=== PATIENT | female | born 1955 | race Caucasian/White ===

== ENCOUNTER → 2018-08-15 | Outpatient (CLI) | payer BC ==
--- NOTE | 2018-08-15 11:24 | BD ---
EXAMINATION TYPE: Axial Bone Density DATE OF EXAM: 08/15/2018 COMPARISON: NONE CLINICAL HISTORY: Height: 62 Weight: 188.6 FRAX RISK QUESTIONS: Alcohol (3 or more units per day): no Family History (Parent hip fracture): no Glucocorticoids (More than 3mos): no (Ex: prednisone, prednisolone, methylprednisolone, dexamethasone, and hydrocortisone). History of Fracture in Adulthood: no Secondary Osteoporosis: 1. Type 1 Diabetes: no 2. Hyperthyroidism: no 3. Menopause before 45: yes 4. Malnutrition: no 5. Chronic liver disease: no Rheumatoid Arthritis: no Current Tobacco Use: no RISK FACTORS HISTORY OF: Family History of Osteoporosis: no Active: yes Diet low in dairy products/other sources of calcium: no Postmenopausal woman: Lost more than 2 inches in height since high school: no MEDICATIONS: breast cancer med Thyroid Medications: tirosint How Long: since age 17 Additional History: EXAM MEASUREMENTS: Bone mineral densitometry was performed using the Transmension System. Bone mineral density as measured about the Lumbar spine is: ----- L1-L4(G/cm2): 1.126 T Score Values are as follows: ----- L2: -1.8 ----- L3: -0.6 ----- L4: 0.6 ----- L1-L4: -0.4 Bone mineral density : baseline Bone mineral density about the R hip (g/cm2): 0.848 Bone mineral density about the L hip (g/cm2): 0.858 T Score values are as follows: -----R Neck: -1.4 -----L Neck: -1.3 -----R Total: -0.9 -----L Total: -0.9 Bone mineral density : baseline IMPRESSION: No evidence for osteoporosis or osteopenia. NOTE: T-SCORE=SD OF THE YOUNG ADULT MEAN.
== END | disposition home or self-care (01) ==
LOC: RADBDWWP 09:12
PROVIDERS: ATTEND Internal Medicine Hematology & Oncology
DX: C50.412 Malignant neoplasm of upper-outer quadrant of left female breast (principal); Z88.0 Allergy status to penicillin; Z88.1 Allergy status to other antibiotic agents; Z88.5 Allergy status to narcotic agent; Z88.8 Allergy status to other drugs, medicaments and biological substances
CPT/HCPCS: 77080

== ENCOUNTER → 2018-12-18 | Outpatient (CLI) | payer BC ==
--- NOTE | 2018-12-18 15:56 | NM ---
EXAMINATION TYPE: NM bone scan whole body DATE OF EXAM: 12/18/2018 COMPARISON: NONE HISTORY: Breast cancer, joint pain Delayed whole-body scanning was performed following the injection of 23 mCi Tc 99m MDP. Images acqui red 3.5 hours post injection. FINDINGS: Soft tissue uptake is normal. There is uptake in the region of the ethmoid air cells. Uptake within t he maxilla and mandible may be due to periodontal disease. Uptake within the feet, wrists, shoulders, knees, hips and sternoclavicular joints is likely due to underlying arthropathy. Mild uptake in the thoracic and lumbar spine likely due to degenerative disc disease or facet arthropathy. IMPRESSION: Metastatic disease is not evident. Probable sinus disease, periodontal disease as described. Degenera tive disc disease and osteoarthritis suspected.
== END | disposition home or self-care (01) ==
LOC: RADNMMAIN 09:52
PROVIDERS: ATTEND Internal Medicine Hematology & Oncology
DX: Z03.89 Encounter for observation for other suspected diseases and conditions ruled out (principal); C50.419 Malignant neoplasm of upper-outer quadrant of unspecified female breast; M25.50 Pain in unspecified joint
CPT/HCPCS: 78306; A9503

== ENCOUNTER → 2019-04-30 | Outpatient (CLI) | payer BC ==
--- NOTE | 2019-04-30 18:44 | ECHOF ---
Referral Reason:M34.9 systemic scierosis, unspecified MEASUREMENTS -------- HEIGHT: 157.5 cm WEIGHT: 88.5 kg BP: 139/68 RVIDd: 2.7 cm (< 3.3) IVSd: 1.2 cm (0.6 - 1.1) LVIDd: 4.4 cm (3.9 - 5.3) LVPWd: 1.2 cm (0.6 - 1.1) IVSs: 1.7 cm LVIDs: 2.4 cm LVPWs: 1.6 cm LA Diam: 3.6 cm (2.7 - 3.8) LAESV Index (A-L): 22.65 ml/m Ao Diam: 2.7 cm (2.0 - 3.7) AV Cusp: 2.0 cm (1.5 - 2.6) MV EXCURSION: 12.148 mm (> 18.000) MV EF SLOPE: 64 mm/s (70 - 150) EPSS: 0.7 cm MV E Brian: 1.08 m/s MV DecT: 211 ms MV A Brian: 0.88 m/s MV E/A Ratio: 1.22 FINDINGS -------- Sinus rhythm. This was a technically adequate study. The left ventricular size is normal. There is borderline concentric left ventricular hypertrophy. Overall left ventricular systolic function is normal with, an EF between 60 - 65 %. The right ventricle is normal in size. Normal LA size by volume 22+/-6 ml/m2. The right atrium is normal in size. Interatrial and interventricular septum intact. The aortic valve is trileaflet and appears structurally normal. Mild mitral annular calcification present. The tricuspid valve appears structurally normal. Trace/mild (physiologic) pulmonic regurgitation. The aortic root size is normal. There is no pericardial effusion. CONCLUSIONS -------- 1. Sinus rhythm. 2. This was a technically adequate study. 3. The left ventricular size is normal. 4. There is borderline concentric left ventricular hypertrophy. 5. Overall left ventricular systolic function is normal with, an EF between 60 - 65 %. 6. The right ventricle is normal in size. 7. Normal LA size by volume 22+/-6 ml/m2. 8. The right atrium is normal in size. 9. Interatrial and interventricular septum intact. 10. The aortic valve is trileaflet and appears structurally normal. 11. Mild mitral annular calcification present. 12. The tricuspid valve appears structurally normal. 13. Trace/mild (physiologic) pulmonic regurgitation. 14. The aortic root size is normal. 15. There is no pericardial effusion. NEEDLE SETTER: Gloria Boo RDCS
== END | disposition home or self-care (01) ==
LOC: CPPFTMAIN 10:30
PROVIDERS: ATTEND Internal Medicine Rheumatology
DX: R94.2 Abnormal results of pulmonary function studies (principal); I37.1 Nonrheumatic pulmonary valve insufficiency
CPT/HCPCS: 93306; 94060; 94726; 94729

== ENCOUNTER → 2019-05-20 | Outpatient (CLI) | payer BC | END | disposition home or self-care (01) | LOC: LABWHC1 11:50 | PROVIDERS: ATTEND Internal Medicine Endocrinology, Diabetes & Metabolism | DX: E03.8 Other specified hypothyroidism (principal) | CPT/HCPCS: 36415; 84443 ==

== ENCOUNTER → 2019-06-22 | Outpatient (CLI) | payer BC ==
--- NOTE | 2019-06-24 21:46 | CT ---
EXAMINATION TYPE: CT chest w con DATE OF EXAM: 06/22/2019 COMPARISON: None HISTORY: 64-year-old female Interstitial lung disease TECHNIQUE: Contiguous axial scanning of the chest after the administration of 100 ml mL of Isovue 300 . Coronal/sagittal reconstructions performed. CT DLP: 677mGycm. Automatic exposure control utilized for a dose reduction. FINDINGS: Heart normal size without pericardial effusion. Aorta normal caliber with conventional arch vessel branching anatomy. Surgical clips posterior lateral left breast from prior lumpectomy. Skin thickening along the left br east suggests prior radiation therapy change. This can be correlated clinically. No thoracic lymphadenopathy. No consolidation or pleural effusion. No honeycombing, dominant groundglass, thickening of the bronch ovascular bundles, bronchiectasis, or tree-in-bud opacities. 3 mm peripheral right upper lobe pulmonary nodule, axial image 15 could be reassessed in 12 months. Visualized upper abdomen shows a fat density 1.1 cm lesion lateral left kidney compatible with an AML . Cholecystectomy clips. Bones: Mild degenerative disc disease midthoracic spine. IMPRESSION: 1. No specific CT findings of interstitial lung disease. 2. Postsurgical and posttreatment changes of the left breast. 3. A 3 mm right upper lobe pulmonary nodule can be reassessed in 12 months. 4. 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
== END | disposition home or self-care (01) ==
LOC: RADCTMAIN 14:39
PROVIDERS: ATTEND Internal Medicine Rheumatology
DX: R91.1 Solitary pulmonary nodule (principal)
CPT/HCPCS: 71260; Q9967

== ENCOUNTER 2020-01-03 10:10 | Observation (INO) | payer BC ==
[2020-01-03] MEDS ORDERED: SODIUM CHLORIDE 0.9% 1,000 ML IV STA (10:25)
[2020-01-03] MEDS ORDERED: ACETAMINOPHEN TAB 500 MG TAB PO STA (10:25)
[2020-01-03 10:50] LABS: Basophils # (A) 0.1 k/uL (0-0.2); Basophils % (A) 0 %; Eosinophils # (A) 0.2 k/uL (0-0.7); Eosinophils % (A) 2 %; HCT 40.2 % (34.0-46.0); HGB 14.3 gm/dL (11.4-16.0); Lymphocytes # (A) 0.6 k/uL (1.0-4.8); Lymphocytes % (A) 6 %; MCH 32.3 pg (25.0-35.0); MCHC 35.5 g/dL (31.0-37.0); MCV 90.9 fL (80.0-100.0); Mean Platelet Volume 7.3; Monocytes # (A) 0.5 k/uL (0-1.0); Monocytes % (A) 5 %; Neutrophils # (A) 9.6 k/uL (1.3-7.7); Neutrophils % (A) 86 %; Platelet Count 182 k/uL (150-450); RBC 4.42 m/uL (3.80-5.40); RDW 12.9 % (11.5-15.5); WBC 11.2 k/uL (3.8-10.6)
--- NOTE | 2020-01-03 10:52 | XR ---
EXAMINATION TYPE: XR chest 2V DATE OF EXAM: 01/03/2020 COMPARISON: CT chest dated 06/22/2019 HISTORY: Fever TECHNIQUE: Frontal and lateral views of the chest are obtained. FINDINGS: There is no focal air space opacity, pleural effusion, or pneumothorax seen. The 3 mm rig ht upper lobe pulmonary nodule seen on the prior chest CT of 06/22/2019 is not visualized on x-ray. Th e cardiac silhouette size is within normal limits. The osseous structures are intact. Mild multilev el degenerative change of the spine. IMPRESSION: No acute cardiopulmonary process.
[2020-01-03 10:56] LABS: INR 0.9 (<1.2); Partial Thromboplastin Time 24.9 sec (22.0-30.0); Prothrombin Time 9.5 sec (9.0-12.0)
[2020-01-03 10:57] LABS: Albumin 4.4 g/dL (3.5-5.0); Calcium 9.4 mg/dL (8.4-10.2); Magnesium 1.7 mg/dL (1.6-2.3); Total Bilirubin 0.5 mg/dL (0.2-1.3); Total Protein 7.2 g/dL (6.3-8.2)
[2020-01-03] MEDS ORDERED: VANCOMYCIN IV PER PHARMACY 1 EACH MISC MISCELLANE PRN (10:59)
[2020-01-03] MEDS ORDERED: LEVOFLOXACIN 750MG-D5W PMX 750 MG in DEXTROSE/WATER 1 150ML.BAG IVPB STA (10:59)
--- NOTE | 2020-01-03 11:02 | ED ---
General Adult HPI - General Chief complaint: Fever Stated complaint: Fever, Blood Transfusion Time Seen by Provider: 01/03/20 10:23 Source: patient Mode of arrival: wheelchair Limitations: no limitations - History of Present Illness Initial comments: Dictation was produced using [employer] dictation software. please excuse any grammatical, word or spelling errors. This patient was cared for during a federal and state declared state of emergency secondary to Covid 19 Chief Complaint: 64-year-old female she presents today for fever. History of Present Illness: 64-year-old female she has past medical history of breast cancer. Patient was recently on breast cancer medications. Her last breast cancer medication was approximately 2 weeks ago. Last couple days patient has been having intermittent episodes of fever and chills. She called her oncologist today is told to come immediately to the emergency department. Patient states she does not have any symptoms of cough, shortness of breath or diarrhea. She denies any nausea. She is complaining of some mild intermittent abdominal pain. She denies any abdominal pain currently. Patient denies any overt sick exposure. No recent travel. Denies any rash. Denies any sore thr oat or runny nose. The ROS documented in this emergency department record has been reviewed and co nfirmed by me. Those systems with pertinent positive or negative responses have been documented in the HPI. All other systems are other negative and/or noncontributory. PHYSICAL EXAM: General Impression: Alert and oriented x3, not in acute distress HEENT: Normocephalic atraumatic, extra-ocular movements intact, pupils equal and reactive to light bilaterally, mucous membranes moist. Cardiovascular: Heart regular rate and rhythm, S1&S2 audible, no murmurs, rubs or gallops Chest: No signs of respiratory distress, able to complete full sentences Abdomen: Bowel sounds present, abdomen soft, non-tender, non-distended, no organomegaly Musculoskeletal: Pulses present and equal in all extremities, no peripheral edema Motor: no focal deficits noted Neurological: CN II-XII grossly intact, no focal motor or sensory deficits noted Skin: Intact with no visualized rashes Psych: Normal affect and mood ED course: 64-year-old female with chief complaint of fever and chills. Vital signs upon arrival shows temperature 102.5, heart rate of 113, worse vital signs within acceptable limits. She does not have no specific localizing symptoms. She is however considered high risk considering her breast cancer history. Laboratory evaluation obtained. Mild leukocytosis of 11.2. There is no old labs for comparison. Coag panel unremarkable. Metabolic panel shows lactic acidosis at 2.3. Rest metabolic panel is unremarkable. Urinalysis is negative. Flu test negative. Chest x-ray is negative. Patient covered with broad- spectrum advised. Clinical presentation consistent with systemic inflammatory response syndrome. Considering patient's comorbidities we'll have patient admitted with consultation to oncology and infectious disease. Discussed patient case with Dr. Lieberman who is willing to accept patient's care. EKG interpretation: Ventricular rate 97, normal sinus rhythm, RI interval 156, QRS 80, QTC 424. No RI prolongation, no QTC prolongation, no ST or T-wave changes noted. . Overall, this EKG is unremarkable - Related Data Home Medications Medication Instructions Recorded Confirmed Aspirin EC [Ecotrin Low Dose] 81 mg PO HS 01/03/20 01/03/20 Biotin 5,000 mcg PO HS 01/03/20 01/03/20 Calcium Carbonate/Vitamin D3 1 tab PO HS 01/03/20 01/03/20 [Caltrate 600 Plus D3 Tablet] Cholecalciferol [Vitamin D3 (25 1,000 unit PO HS 01/03/20 01/03/20 Mcg = 1000 Iu)] Ibuprofen [Motrin] 600 mg PO Q8HR PRN 01/03/20 01/03/20 Levothyroxine Sodium [Tirosint] 125 mcg PO DAILY 01/03/20 01/03/20 Allergies Allergy/AdvReac Type Severity Reaction Status Date / Time cephalexin [From Keflex] Allergy Nausea & Verified 01/03/20 11:22 Vomiting codeine Allergy Nausea & Verified 01/03/20 11:22 Vomiting meperidine [From Demerol] Allergy Nausea & Verified 01/03/20 11:22 Vomiting Penicillins Allergy Rash/Hives Verified 01/03/20 11:22 tetracycline Allergy Nausea & Verified 01/03/20 11:22 Vomiting Review of Systems ROS Statement: Those systems with pertinent positive or pertinent negative responses have been documented in the HPI. ROS Other: All systems not noted in ROS Statement are negative. Past Medical History Past Medical History: Thyroid Disorder Additional Past Medical History / Comment(s): breast CA, leukocytopenia History of Any Multi-Drug Resistant Organisms: None Reported Past Surgical History: Cholecystectomy, Hysterectomy Additional Past Surgical History / Comment(s): breast surgery, thyroidectomy Past Psychological History: No Psychological Hx Reported Smoking Status: Never smoker Past Alcohol Use History: None Reported Past Drug Use History: None Reported General Exam Limitations: no limitations Course Vital Signs 01/03/20 01/03/20 10:14 10:34 Temperature 102.5 F H Pulse Rate 103 H 113 H Respiratory 18 16 Rate Blood Pressure 144/79 147/84 O2 Sat by Pulse 96 95 Oximetry Procedures - [place] Protocol (Time Out) Nurse: Margaret Yu Medical Decision Making - Lab Data Result diagrams: 01/03/20 10:29 01/03/20 10:29 Lab Results 01/03/20 01/03/20 01/03/20 Range/Units 10:29 10:29 10:29 WBC 11.2 H (3.8-10.6) k/uL RBC 4.42 (3.80-5.40) m/uL Hgb 14.3 (11.4-16.0) gm/dL Hct 40.2 (34.0-46.0) % MCV 90.9 (80.0-100.0) fL MCH 32.3 (25.0-35.0) pg MCHC 35.5 (31.0-37.0) g/dL RDW 12.9 (11.5-15.5) % Plt Count 182 (150-450) k/uL Neutrophils % 86 % Lymphocytes % 6 % Monocytes % 5 % Eosinophils % 2 % Basophils % 0 % Neutrophils # 9.6 H (1.3-7.7) k/uL Lymphocytes # 0.6 L (1.0-4.8) k/uL Monocytes # 0.5 (0-1.0) k/uL Eosinophils # 0.2 (0-0.7) k/uL Basophils # 0.1 (0-0.2) k/uL PT 9.5 (9.0-12.0) sec INR 0.9 (<1.2) APTT 24.9 (22.0-30.0) sec Sodium 136 L (137-145) mmol/L Potassium 4.0 (3.5-5.1) mmol/L Chloride 100 (98-107) mmol/L Carbon Dioxide 26 (22-30) mmol/L Anion Gap 10 mmol/L BUN 19 H (7-17) mg/dL Creatinine 0.96 (0.52-1.04) mg/dL Est GFR (CKD-EPI)AfAm 73 (>60 ml/min/1.73 sqM) Est GFR (CKD-EPI)NonAf 63 (>60 ml/min/1.73 sqM) Glucose 157 H (74-99) mg/dL Plasma Lactic Acid Neil (0.7-2.0) mmol/L Calcium 9.4 (8.4-10.2) mg/dL Magnesium 1.7 (1.6-2.3) mg/dL Total Bilirubin 0.5 (0.2-1.3) mg/dL AST 24 (14-36) U/L ALT 25 (4-34) U/L Alkaline Phosphatase 74 (38-126) U/L Troponin I (0.000-0.034) ng/mL Total Protein 7.2 (6.3-8.2) g/dL Albumin 4.4 (3.5-5.0) g/dL Urine Color Urine Appearance (Clear) Urine pH (5.0-8.0) Ur Specific [place] (1.001-1.035) Urine Protein (Negative) Urine Glucose (UA) (Negative) Urine Ketones (Negative) Urine Blood (Negative) Urine Nitrite (Negative) Urine Bilirubin (Negative) Urine Urobilinogen (<2.0) mg/dL Ur Leukocyte Esterase (Negative) Urine RBC (0-5) /hpf Urine WBC (0-5) /hpf Ur Squamous Epith Cells (0-4) /hpf Influenza Type A RNA (Not Detectd) Influenza Type B (PCR) (Not Detectd) 01/03/20 01/03/20 01/03/20 Range/Units 10:29 10:29 10:33 WBC (3.8-10.6) k/uL RBC (3.80-5.40) m/uL Hgb (11.4-16.0) gm/dL Hct (34.0-46.0) % MCV (80.0-100.0) fL MCH (25.0-35.0) pg MCHC (31.0-37.0) g/dL RDW (11.5-15.5) % Plt Count (150-450) k/uL Neutrophils % % Lymphocytes % % Monocytes % % Eosinophils % % Basophils % % Neutrophils # (1.3-7.7) k/uL Lymphocytes # (1.0-4.8) k/uL Monocytes # (0-1.0) k/uL Eosinophils # (0-0.7) k/uL Basophils # (0-0.2) k/uL PT (9.0-12.0) sec INR (<1.2) APTT (22.0-30.0) sec Sodium (137-145) mmol/L Potassium (3.5-5.1) mmol/L Chloride (98-107) mmol/L Carbon Dioxide (22-30) mmol/L Anion Gap mmol/L BUN (7-17) mg/dL Creatinine (0.52-1.04) mg/dL Est GFR (CKD-EPI)AfAm (>60 ml/min/1.73 sqM) Est GFR (CKD-EPI)NonAf (>60 ml/min/1.73 sqM) Glucose (74-99) mg/dL Plasma Lactic Acid Neil 2.3 H* (0.7-2.0) mmol/L Calcium (8.4-10.2) mg/dL Magnesium (1.6-2.3) mg/dL Total Bilirubin (0.2-1.3) mg/dL AST (14-36) U/L ALT (4-34) U/L Alkaline Phosphatase (38-126) U/L Troponin I <0.012 (0.000-0.034) ng/mL Total Protein (6.3-8.2) g/dL Albumin (3.5-5.0) g/dL Urine Color Urine Appearance (Clear) Urine pH (5.0-8.0) Ur Specific [place] (1.001-1.035) Urine Protein (Negative) Urine Glucose (UA) (Negative) Urine Ketones (Negative) Urine Blood (Negative) Urine Nitrite (Negative) Urine Bilirubin (Negative) Urine Urobilinogen (<2.0) mg/dL Ur Leukocyte Esterase (Negative) Urine RBC (0-5) /hpf Urine WBC (0-5) /hpf Ur Squamous Epith Cells (0-4) /hpf Influenza Type A RNA Not Detected (Not Detectd) Influenza Type B (PCR) Not Detected (Not Detectd) 01/03/20 Range/Units 11:35 WBC (3.8-10.6) k/uL RBC (3.80-5.40) m/uL Hgb (11.4-16.0) gm/dL Hct (34.0-46.0) % MCV (80.0-100.0) fL MCH (25.0-35.0) pg MCHC (31.0-37.0) g/dL RDW (11.5-15.5) % Plt Count (150-450) k/uL Neutrophils % % Lymphocytes % % Monocytes % % Eosinophils % % Basophils % % Neutrophils # (1.3-7.7) k/uL Lymphocytes # (1.0-4.8) k/uL Monocytes # (0-1.0) k/uL Eosinophils # (0-0.7) k/uL Basophils # (0-0.2) k/uL PT (9.0-12.0) sec INR (<1.2) APTT (22.0-30.0) sec Sodium (137-145) mmol/L Potassium (3.5-5.1) mmol/L Chloride (98-107) mmol/L Carbon Dioxide (22-30) mmol/L Anion Gap mmol/L BUN (7-17) mg/dL Creatinine (0.52-1.04) mg/dL Est GFR (CKD-EPI)AfAm (>60 ml/min/1.73 sqM) Est GFR (CKD-EPI)NonAf (>60 ml/min/1.73 sqM) Glucose (74-99) mg/dL Plasma Lactic Acid Neil (0.7-2.0) mmol/L Calcium (8.4-10.2) mg/dL Magnesium (1.6-2.3) mg/dL Total Bilirubin (0.2-1.3) mg/dL AST (14-36) U/L ALT (4-34) U/L Alkaline Phosphatase (38-126) U/L Troponin I (0.000-0.034) ng/mL Total Protein (6.3-8.2) g/dL Albumin (3.5-5.0) g/dL Urine Color Light Yellow Urine Appearance Clear (Clear) Urine pH 6.0 (5.0-8.0) Ur Specific [place] 1.010 (1.001-1.035) Urine Protein Negative (Negative) Urine Glucose (UA) Negative (Negative) Urine Ketones Negative (Negative) Urine Blood Negative (Negative) Urine Nitrite Negative (Negative) Urine Bilirubin Negative (Negative) Urine Urobilinogen <2.0 (<2.0) mg/dL Ur Leukocyte Esterase Small H (Negative) Urine RBC 1 (0-5) /hpf Urine WBC 3 (0-5) /hpf Ur Squamous Epith Cells 1 (0-4) /hpf Influenza Type A RNA (Not Detectd) Influenza Type B (PCR) (Not Detectd) Disposition Clinical Impression: SIRS (systemic inflammatory response syndrome) Disposition: ADMITTED IP TO THIS HOSP Condition: Fair Is patient prescribed a controlled substance at d/c from ED?: No Referrals: Kennedi Rodrigues MD [Primary Care Provider] - 1-2 days Decision Time: 12:13
[2020-01-03] MEDS ORDERED: VANCOMYCIN 1,500 MG in SODIUM CHLORIDE 0.9% 250 ML IVPB STA (11:03)
[2020-01-03 11:55] LABS: Appearance,Urine Clear (Clear); Bilirubin,Urine Negative (Negative); Blood,Urine Negative (Negative); Color,Urine Light Yellow; Glucose,Urine (UA) Negative (Negative); Ketones,Urine Negative (Negative); Leukocyte Esterase,Urine Small (Negative); Nitrite,Urine Negative (Negative); Protein,Urine Negative (Negative); RBC,Urine 1 /hpf (0-5); Squamous Epithelial Cell,Urine 1 /hpf (0-4); Urobilinogen,Urine <2.0 mg/dL (<2.0); WBC,Urine 3 /hpf (0-5)
[2020-01-03] MEDS ORDERED: ACETAMINOPHEN TAB 325 MG TAB PO PRN (12:08)
[2020-01-03] MEDS ORDERED: NALOXONE 0.4 MG/ML 1 ML VIAL IV PRN (12:08)
[2020-01-03] MEDS ORDERED: ONDANSETRON 4 MG/2 ML VIAL IVP PRN (12:08)
[2020-01-03] MEDS ORDERED: SODIUM CHLORIDE 0.9% 1,000 ML IV SCH (12:15)
--- NOTE | 2020-01-03 17:55 | P.HPIM ---
History of Present Illness H&P Date: 01/03/20 Chief Complaint: Chills History of presenting complaint: This is a very pleasant 64-year-old patient with Virginie Rodrigues. Chronic stable medical conditions include asthma, iron deficiency anemia, scleroderma diagnosed and being followed by Dr. Casillas, hypothyroid, positive for lupus anti-bodies without lupus being present, cancer breast with ER positive did receive radiation treatment the past did get immunotherapy but held off for a month because be getting achy all over. Patient's yesterday started getting fever and chills. No cough or shortness of breath. No urinary symptoms no skin symptoms. Appetite is fair. Noticed oral sores. Admitted for the same. Bit tired Review of systems: GEN.: Fever or chills tired EYES: None HEENT: Oral lip sore NECK: None RESPIRATORY: None CARDIOVASCULAR: None GASTROINTESTINAL: None GENITOURINARY: None MUSCULOSKELETAL: None LYMPHATICS: None HEMATOLOGICAL: None PSYCHIATRY: None NEUROLOGICAL: None Past medical history to include: Carcinoma breast treated with radiation treatment and immunotherapy, asthma, iron deficiency anemia, hypothyroid, scleroderma, lupus antibodies positive Social history: This is a . Does not smoke or drink alcohol. Physical examination: VITAL SIGNS: Heart a 2.5, 103, 18, 144/79, 96% on room air GENERAL: BMI 35.7, laying in bed, distressed. EYES: Pupils equal. Conjunctiva normal. HEENT: External appearance of nose and ears normal, oral sores on the lips. NECK: JVD not raised; masses not palpable. HEART: First and second heart sounds are normal; no edema. LUNGS: Respiratory rate normal; clear to auscultation. ABDOMEN: Soft, nontender, liver spleen not palpable, no masses palpable. PSYCH: Alert and oriented x3; mood and affect normal. NEUROLOGICAL: Cranial nerves grossly intact; no facial asymmetry, power and sensation grossly intact. LYMPHATICS: No lymph nodes palpable in the axilla and neck INVESTIGATIONS, reviewed in the clinical context: White count 10.2 hemoglobin 14.3 platelets 182 potassium 4 bun 19 creatinine 0.96 UA showing leukoesterase small positive. 3 WBC Influenza type A and type B both negative EKG tracing personally reviewed by me-normal sinus rhythm Chest x-ray film personally reviewed by me-lung vasquez clear Assessment: -New onset of fever and chills with the patient with slight leukocytosis and lymphopenia. Patient denies any urinary or respiratory symptoms. -COVID-19 sent from the ER -Lactic acidosis -Intermittent asthma-stable -Hypothyroid -Scleroderma with lupus antibody positive in remission -Carcinoma breast ER positive with history of radiation treatment status post immunotherapy stopped because of patient feeling weak and tired -Acute flareup of Herpes simplex/oral Plan: Infection disease was consulted. Patient started on vancomycin in the ER. We'll DC the same. No obvious source of infection. Follow clinically. COVID- 19 is pending. Care was discussed with the patient. Questions were answered. Lovenox for DVT prophylaxis. Repeat labs in the morning. IV fluids started. Past Medical History Past Medical History: Asthma, Blood Disorder, Cancer, Osteoarthritis (OA), Pneumonia, Thyroid Disorder Additional Past Medical History / Comment(s): L breast cancer with lumpectomy/radiation and hormone treatment which was stopped approximately 2 weeks ago d/t issues with achiness/hotness, chronic leukocytopenia, hemochromatosis carrier, has lupus antibody but has never been diagnosed with lupus, scleraderma/chronic generalized pain, bronchitis. History of Any Multi-Drug Resistant Organisms: None Reported Past Surgical History: Breast Surgery, Cholecystectomy, Hysterectomy Additional Past Surgical History / Comment(s): L breast lumpectomy 2019, thyroidectomy d/t strangling goiter, colonoscopy. Past Anesthesia/Blood Transfusion Reactions: Postoperative Nausea & Vomiting (PONV) Smoking Status: Never smoker - Past Family History Father Additional Family Medical History / Comment(s): Father from a surgical "mistake" per pt. Mother Additional Family Medical History / Comment(s): Mother had a brain bleed. Medications and Allergies Home Medications Medication Instructions Recorded Confirmed Type Levothyroxine Sodium [Tirosint] 112 mcg PO DAILY 01/03/20 01/03/20 History Allergies Allergy/AdvReac Type Severity Reaction Status Date / Time cephalexin [From Keflex] Allergy Nausea & Verified 01/03/20 11:22 Vomiting codeine Allergy Nausea & Verified 01/03/20 11:22 Vomiting meperidine [From Demerol] Allergy Nausea & Verified 01/03/20 11:22 Vomiting Penicillins Allergy Rash/Hives Verified 01/03/20 11:22 tetracycline Allergy Nausea & Verified 01/03/20 11:22 Vomiting Physical Exam Vitals: Vital Signs Temp Pulse Pulse Resp BP BP Pulse Ox 01/03/20 16:00 91 16 01/03/20 13:45 98.5 F 91 16 114/70 100 01/03/20 13:40 16 01/03/20 12:37 99.7 F H 91 16 136/71 95 01/03/20 10:34 113 H 16 147/84 95 01/03/20 10:14 102.5 F H 103 H 18 144/79 96 Intake and Output 01/03/20 01/03/20 01/03/20 06:59 14:59 22:59 Other: Weight 88.451 kg Results CBC & Chem 7: 01/03/20 10:29 01/03/20 10:29 Labs: Abnormal Lab Results - Last 24 Hours (Table) 01/03/20 01/03/20 01/03/20 Range/Units 10:29 10:29 10:29 WBC 11.2 H (3.8-10.6) k/uL Neutrophils # 9.6 H (1.3-7.7) k/uL Lymphocytes # 0.6 L (1.0-4.8) k/uL Sodium 136 L (137-145) mmol/L BUN 19 H (7-17) mg/dL Glucose 157 H (74-99) mg/dL Plasma Lactic Acid Neil 2.3 H* (0.7-2.0) mmol/L Ur Leukocyte Esterase (Negative) 01/03/20 Range/Units 11:35 WBC (3.8-10.6) k/uL Neutrophils # (1.3-7.7) k/uL Lymphocytes # (1.0-4.8) k/uL Sodium (137-145) mmol/L BUN (7-17) mg/dL Glucose (74-99) mg/dL Plasma Lactic Acid Neil (0.7-2.0) mmol/L Ur Leukocyte Esterase Small H (Negative) Thrombosis Risk Factor Assmnt - Choose All That Apply Any of the Below Risk Factors Present?: Yes Each Factor Represents 1 point: Obesity (BMI >25) Other Risk Factors: Yes Each Risk Factor Represents 2 Points: Age 61-74 years, Malignancy Other congenital or acquired thrombophilia - If yes, enter type in comment: No Thrombosis Risk Factor Assessment Total Risk Factor Score: 5 Thrombosis Risk Factor Assessment Level: High Risk
[2020-01-03] MEDS: LACTATED RINGERS 1,000 ML IV SCH (18:12)
[2020-01-03] MEDS: ENOXAPARIN 40 MG/0.4 ML SYRINGE SQ SCH (18:15)
[2020-01-03] MEDS: ACYCLOVIR 800 MG TAB PO SCH ×2 (18:24→21:34)
[2020-01-04] MEDS: ACYCLOVIR 800 MG TAB PO SCH ×3 (00:11→12:24)
[2020-01-04] MEDS: LACTATED RINGERS 1,000 ML IV SCH (00:13)
--- NOTE | 2020-01-04 01:04 | P.CONS ---
History of Present Illness - Reason for Consult Consult date: 01/03/20 Fever Requesting physician: Goyo Lieberman - Chief Complaint fever x few days - History of Present Illness Patient is a 64-year-old female with a past medical history significant for breast cancer status post radiation therapy no chemo presenting to the ER with chief complaints of intermittent fever and chills that has been going on for the last few days to week patient called the oncology who told her to go to the ER right away patient denies having any URI symptoms denies having any chest pain or shortness of breath with minimal cough no nausea no vomiting no abdominal pain no diarrhea and no sick contact the symptom the patient has been evaluated by the ER physician on arrival to the ER patient did have a fever of 102.5 today for right patient was not tachycardic but not tachypneic and has been satting 100% on room air patient did have mildly white count of 11.2 lactic acid 2.3 urine has been negative influenza PCR was negative: PCR has been sent patient did have a chest x-ray that was negative for acute cardiopulmonary process patient did received a dose of Levaquin and vancomycin subsequently has been admitted to hospital infectious disease was consulted for further recommendation about antibiotic therapy. 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 History of Any Multi-Drug Resistant Organisms: None Reported Past Surgical History: Breast Surgery, Cholecystectomy, Hysterectomy Additional Past Surgical History / Comment(s): L breast lumpectomy 2019, thyroidectomy d/t strangling goiter, colonoscopy. Past Anesthesia/Blood Transfusion Reactions: Postoperative Nausea & Vomiting (PONV) Smoking Status: Never smoker - Past Family History Father Additional Family Medical History / Comment(s): Father from a surgical "mistake" per pt. Mother Additional Family Medical History / Comment(s): Mother had a brain bleed. Medications and Allergies Home Medications Medication Instructions Recorded Confirmed Type Levothyroxine Sodium [Tirosint] 112 mcg PO DAILY 01/03/20 01/03/20 History Allergies Allergy/AdvReac Type Severity Reaction Status Date / Time cephalexin [From Keflex] Allergy Nausea & Verified 01/03/20 11:22 Vomiting codeine Allergy Nausea & Verified 01/03/20 11:22 Vomiting meperidine [From Demerol] Allergy Nausea & Verified 01/03/20 11:22 Vomiting Penicillins Allergy Rash/Hives Verified 01/03/20 11:22 tetracycline Allergy Nausea & Verified 01/03/20 11:22 Vomiting Physical Exam Vitals: Vital Signs Temp Pulse Pulse Resp BP BP Pulse Ox 01/03/20 13:45 98.5 F 91 16 114/70 100 01/03/20 13:40 16 01/03/20 12:37 99.7 F H 91 16 136/71 95 01/03/20 10:34 113 H 16 147/84 95 01/03/20 10:14 102.5 F H 103 H 18 144/79 96 Intake and Output 01/03/20 01/03/20 01/03/20 06:59 14:59 22:59 Other: Weight 88.451 kg GENERAL DESCRIPTION: Middle-aged female lying in bed, no distress. No tachypnea or accessory muscle of respiration use. HEENT: Shows Pallor , no scleral icterus. Oral mucous membrane is dry. NECK: Trachea central, no thyromegaly. LUNGS: Unlabored breathing. Clear to auscultation anteriorly. No wheeze or crackle. HEART: S1, S2, regular rate and rhythm. ABDOMEN: Soft, no tenderness , guarding or rigidity EXTREMITIES: No edema of feet. SKIN: No rash, no masses palpable. NEUROLOGICAL: The patient is awake, alert, oriented x3, mood and affect normal. Results CBC & Chem 7: 01/03/20 10:29 01/03/20 10:29 Labs: Abnormal Lab Results - Last 24 Hours (Table) 01/03/20 01/03/20 01/03/20 Range/Units 10:29 10:29 10:29 WBC 11.2 H (3.8-10.6) k/uL Neutrophils # 9.6 H (1.3-7.7) k/uL Lymphocytes # 0.6 L (1.0-4.8) k/uL Sodium 136 L (137-145) mmol/L BUN 19 H (7-17) mg/dL Glucose 157 H (74-99) mg/dL Plasma Lactic Acid Neil 2.3 H* (0.7-2.0) mmol/L Ur Leukocyte Esterase (Negative) 01/03/20 Range/Units 11:35 WBC (3.8-10.6) k/uL Neutrophils # (1.3-7.7) k/uL Lymphocytes # (1.0-4.8) k/uL Sodium (137-145) mmol/L BUN (7-17) mg/dL Glucose (74-99) mg/dL Plasma Lactic Acid Neil (0.7-2.0) mmol/L Ur Leukocyte Esterase Small H (Negative) Assessment and Plan Assessment: 1-patient presented to the hospital with fever and this patient did have mild elevated white count 11.2 however patient currently with no obvious focus of infection chest x-ray reportedly negative UA has been negative and no evidence of any cellulitis abdominal soft on clinical examination with concern for possible viral syndrome and COVID-19 infection not entirely excluded. (1) SIRS (systemic inflammatory response syndrome) Current Visit: Yes Status: Acute Code(s): R65.10 - SIRS OF NON-INFECTIOUS ORIGIN W/O ACUTE ORGAN DYSFUNCTION SNOMED Code(s): 754738418 Plan: 1-await COVID-19 testing to finalize 2-supportive treatment at this point with antibiotics and will hold on any systemic antibiotic therapy at this point and the patient currently otherwise looks stable We will follow on clinical condition and cultures to further adjust medication if needed Thank you for this consultation we will follow the patient along with you Time with Patient: Greater than 30
--- NOTE | 2020-01-04 01:27 | P.CONS ---
History of Present Illness - Reason for Consult Consult date: 01/03/20 Fever, SIRS, Breast ca on rx - History of Present Illness Mrs. Alfonso Flores is a 64 yr old white female, well known to myself. She was initially seen several years ago, at [facility] for low white blood cell count. The patient has a known diagnosis of autoimmune disease, and this was felt to be likely autoimmune in nature, as workup for other causes was negative. Generally total white blood count was in the 3-4 range, with ANC mostly above 500. The patient did not have any symptoms related to the same, and was therefore followed with observation. Due to stability, she decided to stop regular hematology follow-up and continued following up with her primary care physician. She was referred back in 06/25 due to a new finding, and seen on 06/19/17. Her brother had from liver failure, that was apparently due to hemochromatosis. Her sister has a known diagnosis of hemochromatosis and is a pa tient in our practice. Due to her brother, the patient became concerned and had gene testing done in 04/24. 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 Labs from 05/01/17 showed iron saturation of 39.4 serum iron of 106 and ferritin of 300. Liver enzymes within normal limits. Hemoglobin 13.4 WBC 3.1 ANC 400 and platelets 190. Absolute monocyte count was 500. She had additional labs done. These showed normal iron studies with ferritin of 186, and normal liver enzymes. Repeat labs for her leucopenia were also normal She was seen by Rheumatology, and it was felt that her symptoms were due to DJD , rather than inflammation. She was thus placed on observation. She was noted to have an abnormal finding on routine mammogram in the UOQ of the left breast, on 02/06/18. US confirmed an hypoechoic, solid mass, o.8 x 0.7 x 0.9 cm at 3 o c'lock. She had an US guided core biopsy on 03/09/18, revealing an invasive ductal carcinoma, Grade I, ER 100%, AK 25 %, and Her-2 negative ( 0). She was seen at the [facility], and had a wire excision lumpectomy with SNB on 05/08/18. This revealed a 1.1 cm tumor grade I , with negative margins and 0/1 SN involved. She had oncotype testing done, placing her in the low risk group with a score of 13. She proceeded to RT and completed that on 07/27/18 She then started anastrozole. She was placed on prophylactic antibiotics as her ANC had dropped to < 500 on RT, for the last 2 wks of treatment She required antibiotics for an URTI in 09/25, with resolution. Since completion of her RT, her ANC has been > 1000, consistently Anastrozole was held from 10/25/18 due to increased hot flashes and joint pains. She did not notice a major difference with stopping it. SHe was started on Aromasin in 11/27. She was referred back to Rheumatology, and received a dose pack, and rt wrist IA injection, without much a change. She had a repeat injection in the rt wrist in 03/27. She initally felt slightly better on the Aromasin, with better sleep, less hot flashes, and stable joint pains. However at her visit on 12/20/19 she again reported similar symptoms as on anastrozole. Therefore Aromasin was held, to see her symptoms resolved. Her WBC on 01/06/20 was 3.6 with ANC in the 20,000 range. The patient called the office today stating that she had a fever of 102.1. She had been feeling somewhat achy yesterday after working in the yard. However she denied any other localizing symptoms. Due to her prior history of neutropenia, it is felt that she needed to be evaluated with a CBC and was asked to go to the ER. In the ER the patient also reported a low-grade temperature in the 80F range in the early a.m. WBC was actually 11.2 with predominant neutrophils. She was admitted for further management, including COVID testing She denied any sore throat, nasal congestion, cough, diarrhea, or urinary complaints. No history of any new skin lesions. Review of Systems Constitutional: Reports chills, Reports fever Eyes: denies blurred vision, denies pain Ears: deny: decreased hearing, ear discharge, earache, tinnitus Ears, nose, mouth and throat: Denies headache, Denies sore throat Breasts: left: as per HPI Cardiovascular: Denies chest pain, Denies shortness of breath Respiratory: Denies cough Gastrointestinal: Denies abdominal pain, Denies diarrhea, Denies nausea, Denies vomiting Genitourinary: Denies dysuria, Denies hematuria Musculoskeletal: Reports muscle weakness, Reports shooting arm pain, Reports shooting leg pain Integumentary: Denies pruritus, Denies rash Neurological: Denies numbness, Denies weakness Endocrine: Denies fatigue, Denies weight change Hematologic/Lymphatic: Reports as per HPI Past Medical History Past Medical History: Asthma, Blood Disorder, Cancer, Osteoarthritis (OA), Pneumonia, Thyroid Disorder Additional Past Medical History / Comment(s): L breast cancer with lumpectomy/radiation and hormone treatment which was stopped approximately 2 weeks ago d/t issues with achiness/hotness, chronic leukocytopenia, hemochromatosis carrier, has lupus antibody but has never been diagnosed with lupus, scleraderma/chronic generalized pain, bronchitis. History of Any Multi-Drug Resistant Organisms: None Reported Past Surgical History: Breast Surgery, Cholecystectomy, Hysterectomy Additional Past Surgical History / Comment(s): L breast lumpectomy 2019, thyroidectomy d/t strangling goiter, colonoscopy. Past Anesthesia/Blood Transfusion Reactions: Postoperative Nausea & Vomiting (PONV) Smoking Status: Never smoker - Past Family History Father Additional Family Medical History / Comment(s): Father from a surgical "mistake" per pt. Mother Additional Family Medical History / Comment(s): Mother had a brain bleed. Medications and Allergies Home Medications Medication Instructions Recorded Confirmed Type Levothyroxine Sodium [Tirosint] 112 mcg PO DAILY 01/03/20 01/03/20 History Allergies Allergy/AdvReac Type Severity Reaction Status Date / Time cephalexin [From Keflex] Allergy Nausea & Verified 01/03/20 11:22 Vomiting codeine Allergy Nausea & Verified 01/03/20 11:22 Vomiting meperidine [From Demerol] Allergy Nausea & Verified 01/03/20 11:22 Vomiting Penicillins Allergy Rash/Hives Verified 01/03/20 11:22 tetracycline Allergy Nausea & Verified 01/03/20 11:22 Vomiting Physical Exam Vitals: Vital Signs Temp Pulse Pulse Resp BP BP Pulse Ox 01/03/20 13:45 98.5 F 91 16 114/70 100 01/03/20 13:40 16 01/03/20 12:37 99.7 F H 91 16 136/71 95 01/03/20 10:34 113 H 16 147/84 95 01/03/20 10:14 102.5 F H 103 H 18 144/79 96 Intake and Output 01/03/20 01/03/20 01/03/20 06:59 14:59 22:59 Other: Weight 88.451 kg - Constitutional General appearance: no acute distress - EENT Eyes: EOMI, PERRLA ENT: hearing grossly normal, normal oropharynx Ears: bilateral: normal - Neck Neck: no lymphadenopathy Thyroid: bilateral: normal size - Respiratory Respiratory: bilateral: CTA - Cardiovascular Rhythm: regular Heart sounds: normal: S1, S2 - Gastrointestinal General gastrointestinal: normal bowel sounds, soft - Integumentary Integumentary: normal - Neurologic Neurologic: CNII-XII intact - Musculoskeletal Musculoskeletal: strength equal bilaterally - Psychiatric Psychiatric: A&O x's 3, appropriate affect Results CBC & Chem 7: 01/03/20 10:29 01/03/20 10:29 Labs: Abnormal Lab Results - Last 24 Hours (Table) 01/03/20 01/03/20 01/03/20 Range/Units 10:29 10:29 10:29 WBC 11.2 H (3.8-10.6) k/uL Neutrophils # 9.6 H (1.3-7.7) k/uL Lymphocytes # 0.6 L (1.0-4.8) k/uL Sodium 136 L (137-145) mmol/L BUN 19 H (7-17) mg/dL Glucose 157 H (74-99) mg/dL Plasma Lactic Acid Neil 2.3 H* (0.7-2.0) mmol/L Ur Leukocyte Esterase (Negative) 01/03/20 Range/Units 11:35 WBC (3.8-10.6) k/uL Neutrophils # (1.3-7.7) k/uL Lymphocytes # (1.0-4.8) k/uL Sodium (137-145) mmol/L BUN (7-17) mg/dL Glucose (74-99) mg/dL Plasma Lactic Acid Neil (0.7-2.0) mmol/L Ur Leukocyte Esterase Small H (Negative) Chest x-ray: report reviewed Assessment and Plan (1) SIRS (systemic inflammatory response syndrome) Narrative/Plan: The pt presented with fever, with chills, and preceding hypothermia. She has no localizing signs however. Her PE is unrevealing. She was sent in when she called the office, due to concerns for neutropenic fever, based on her prior history. However, she is not neutropenic, with WBC and ANC quite adequate - Pt is on Vanco and Levaquin. She is afebrile since admission. Cultures are pen ding. COVID has also been ordered - Defer to IM/ID for antibiotic management. Can d/c whwnever ok with them Current Visit: Yes Status: Acute Code(s): R65.10 - SIRS OF NON-INFECTIOUS ORIGIN W/O ACUTE ORGAN DYSFUNCTION SNOMED Code(s): 246201373 (2) Breast cancer Narrative/Plan: Diagnostic and therapeutic circumstances as described. Pt has no clinical evidence of recurrence. She is on a treatment break due to perceived side effects. Continue treatment break till she is seen again in the office Current Visit: Yes Status: Acute Code(s): C50.919 - MALIGNANT NEOPLASM OF UNSP SITE OF UNSPECIFIED FEMALE BREAST SNOMED Code(s): 397445733 (3) Auto immune neutropenia Narrative/Plan: She has beenn in remission in this regard. WBC and ANC are quite adequate. Continue to monitor Current Visit: Yes Status: Acute Code(s): D70.8 - OTHER NEUTROPENIA SNOMED Code(s): 216862821
[2020-01-04] MEDS ORDERED: VANCOMYCIN 1,500 MG in SODIUM CHLORIDE 0.9% 250 ML IVPB SCH (04:00)
[2020-01-04] MEDS ORDERED: LEVOTHYROXINE 112 MCG TAB PO SCH (06:30)
[2020-01-04 08:03] LABS: HCT 38.9 % (34.0-46.0); HGB 13.2 gm/dL (11.4-16.0); MCH 31.8 pg (25.0-35.0); MCV 93.6 fL (80.0-100.0); Mean Platelet Volume 7.6; Platelet Count 166 k/uL (150-450); RBC 4.16 m/uL (3.80-5.40); RDW 13.1 % (11.5-15.5); WBC 9.8 k/uL (3.8-10.6)
[2020-01-04 08:12] LABS: Calcium 8.8 mg/dL (8.4-10.2); Potassium 4.1 mmol/L (3.5-5.1)
[2020-01-04] MEDS: ENOXAPARIN 40 MG/0.4 ML SYRINGE SQ SCH (09:13)
[2020-01-04 15:54] VITALS: BP 125/76; PULSE 75; RESP 16; TEMP 98.5
--- NOTE | 2020-01-04 16:00 | PN ---
PROGRESS NOTE DATE OF SERVICE: 01/04/2020 REASON FOR FOLLOWUP: SIRS. INTERVAL HISTORY: The patient is currently afebrile. No fever has been recorded in the last 24 hours. The patient overall is feeling better. She is breathing comfortably. Denies having any chest pain, shortness of breath or cough. No nausea, no vomiting. No abdominal pain or diarrhea. PHYSICAL EXAMINATION: Blood pressure 113/56, pulse of 81, temperature 98.6, she is 99% on room air. General description is a middle-aged female lying in bed in no distress. Respiratory system: Unlabored breathing. Clear to auscultation anteriorly. Heart S1, S2. Regular rate and rhythm. Abdomen soft, no tenderness. LABS: White count normal at 9.8. Lactic acid normal at 1.5. Blood culture has been negative. DIAGNOSTIC IMPRESSION AND PLAN: Patient admitted to the hospital with a fever in this patient who did have mild leukocytosis, systemic inflammatory response syndrome with question of possible viral syndrome. The patient seemed to have shown clinical improvement without any antibiotic therapy and is currently stable. She should go home on until Covid-19 testing is completed. No need for antibiotics or antiviral on discharge. This has been discussed with the admitting physician. MMODL / IJN: [id number] /
--- NOTE | 2020-01-04 19:57 | P.DS ---
Providers Date of admission: 01/03/20 12:08 Expected date of discharge: 01/04/20 Attending physician: Goyo Lieberman Consults: 01/03/20 11:12 Consult Physician Routine Consulting Provider: Paul Hernandez Consult Reason/Comments: hx of breast cancer Do you want consulting provider notified?: Yes 01/03/20 12:08 Consult Physician Routine Consulting Provider: Tabatha Dover Consult Reason/Comments: SIRS Do you want consulting provider notified?: Yes Primary care physician: Kennedi Rodrigues [facility] Course: Chief Complaint: Chills History of presenting complaint: This is a very pleasant 64-year-old patient with Virginieaminata Rodrigues. Chronic stable medical conditions include asthma, iron deficiency anemia, scleroderma diagnosed and being followed by Dr. Casillas, hypothyroid, positive for lupus anti-bodies without lupus being present, cancer breast with ER positive did receive radiation treatment the past did get immunotherapy but held off for a month because be getting achy all over. Patient's yesterday started getting fever and chills. No cough or shortness of breath. No urinary symptoms no skin symptoms. Appetite is fair. Noticed oral sores. Admitted for the same. Bit tired Today-patient continues to feel well no fever. No chills. Eating well. Up and about. Very keen to go home. Infectious workup has been negative. Herpes labialis on lower lip-started on acyclovir. Patient was discussed about the COVID tied results pending. Patient to maintain quarantine's/social isolation. Questions were answered. Discussion and discharge planning more than 35 minutes Consultation: Dr. Dover from ID Dr. Hernandez from hematology Physical examination: VITAL SIGNS: 98.5, 77, 16, 125/76, 99% on room air GENERAL: BMI 35.7, comfortable EYES: Pupils equal. Conjunctiva normal. HEENT: External appearance of nose and ears normal, oral sores on the lips. NECK: JVD not raised; masses not palpable. HEART: First and second heart sounds are normal; no edema. LUNGS: Respiratory rate normal; clear to auscultation. ABDOMEN: Soft, nontender, liver spleen not palpable, no masses palpable. PSYCH: Alert and oriented x3; mood and affect normal. INVESTIGATIONS, reviewed in the clinical context: White count 9.8 hemoglobin 13.2 potassium 4.1 White count 10.2 hemoglobin 14.3 platelets 182 potassium 4 bun 19 creatinine 0.96 UA showing leukoesterase small positive. 3 WBC Influenza type A and type B both negative EKG tracing personally reviewed by me-normal sinus rhythm Chest x-ray film personally reviewed by me-lung vasquez clear Assessment: -New onset of fever and chills with the patient with slight leukocytosis and lymphopenia. Patient denies any urinary or respiratory symptoms. -[id number] pending -Lactic acidosis -Intermittent asthma-stable -Hypothyroid -Scleroderma with lupus antibody positive in remission -Carcinoma breast ER positive with history of radiation treatment status post immunotherapy stopped because of patient feeling weak and tired -Acute flareup of Herpes simplex/oral Disposition: Home Patient Condition at Discharge: Stable Plan - Discharge Summary Discharge Rx Participant: No New Discharge Prescriptions: New Acyclovir [Zovirax] 800 mg PO 5XD #35 tab Continue Levothyroxine Sodium [Tirosint] 112 mcg PO DAILY Discharge Medication List Levothyroxine Sodium [Tirosint] 112 mcg PO DAILY 01/03/20 [History] Acyclovir [Zovirax] 800 mg PO 5XD #35 tab 01/04/20 [Rx] Follow up Appointment(s)/Referral(s): Kennedi Rodrigues MD [Primary Care Provider] - 1-2 days (Office closed Please call to make appointment.) Activity/Diet/Wound Care/Special Instructions: Social distancing-6 feet. Discharge Disposition: HOME SELF-CARE
--- NOTE | 2020-01-07 09:48 | CDI ---
Documentation Clarification Form Date: 01/07/20 From: Nusrat Hoffmann Phone: If you have a question about this query, please contact [address]an[address] [employer] Operator at [phone] between 8am and 5pm. Admit Date: 01/02/30 Discharge Date:01/03/30 Patient Name: Danya Matthew Visit Number: [id number] ATTENTION: The Clinical Documentation Specialists (CDI) and [facility] Coding Staff appreciate your assistance in clarifying documentation. Please respond to the clarification below the line at the bottom and electronically sign. The CDI & [facility] Coding staff will review the response and follow-up if needed. Please note: Queries are made part of the Legal Health Record. If you have any questions, please contact the author of this message via ITS. Dear Dr. Lieberman SIRS is documented in the ED note, Dr. Dover's consult note and Dr. Hernandez's consult note. Dr. Dover documented systemic inflammatory response syndrome with question of possible viral syndrome in his 01/03 progress note. History/Risk Factors: Breast cancer with radiation and immunotherapy, scleroderma Clinical Indicators: Fever, elevated white count WBC/Left Shift: 11.2/86% Lactic acid: 2.3 Vitals signs on admission: 102.5, P. 103, R. 18, BP 144/79 Treatment: 1 liter bolus of NS, IV Vancomycin, IV Levaquin In your professional opinion, can you please clarify if these findings signify one of the following conditions, whether the condition is POA, and cause, if known? SIRS, not due to infection, without acute organ dysfunction SIRS, not due to infection, with acute organ dysfunction SIRS, due to infection SIRS ruled out Other, please specify Unable to determine SIRS Criteria (2 or more of the following may indicate SIRS): -Temperature < 96.8F(36C) or > 101.0F (38.3C) -Heart Rate > 90 bpm -Respiratory Rate > 20 breaths/min or PaCO2 < 32 mmHg -White Blood Cell Count > 12,000 or < 4,000 cells/mm3 or > 10% bands SIRS due to herpes simplex-oral MTDD
--- NOTE | 2020-01-08 17:00 | CDI ---
Documentation Clarification Form Date: From: Nusrat Flores Admit Date: 01/03/2020 12:08:00 PM Patient Name: Danya Matthew Visit Number: [id number] Discharge Date: 01/04/2020 04:47:00 PM ATTENTION: The Clinical Documentation Specialists (CDI) and [facility] Coding Staff appreciate your assistance in clarifying documentation. Please respond to the clarification below the line at the bottom and electronically sign. The CDI & [facility] Coding staff will review the response and follow-up if needed. Please note: Queries are made part of the Legal Health Record. If you have any questions, please contact the author of this message via ITS. Dr. Goyo Lieberman [id number] pending is documented in the discharge summary on 01/03. Patient history/risk factors: 64yo with a history of asthma, scleroderma, positive for lupus anti-bodies. Clinical Indicators: Pt presented with fever, chills CXR: no acute cardiopulmonary process Labs: 01/02 WBC 11.2, lactic acid 2.3 Vital Signs: in ER temp 102.5, heart rate 113 Treatment: Acyclovir po, isolation precautions In order to capture the severity of condition, please clarify if the above treatment/clinical indicators signify: COVID-19 Suspected COVID-19 ruled out COVID-19 confirmed Other, please specify Unable to determine (Last Form Revision: December 2019) Unable to determine MTDD
--- NOTE | 2020-01-08 17:07 | CDI ---
Documentation Clarification Form Date: From: Nusrat Flores Admit Date: 01/03/2020 12:08:00 PM Patient Name: Danya Matthew Visit Number: [id number] Discharge Date: 01/04/2020 04:47:00 PM ATTENTION: The Clinical Documentation Specialists (CDI) and [facility] Coding Staff appreciate your assistance in clarifying documentation. Please respond to the clarification below the line at the bottom and electronically sign. The CDI & [facility] Coding staff will review the response and follow-up if needed. Please note: Queries are made part of the Legal Health Record. If you have any questions, please contact the author of this message via ITS. Dr. Goyo Lieberman Please render your opinion on the systemic response. Per the ER record the patient was admitted for SIRS. Per your previous query response, SIRS due to herpex simplex-oral. Per ID PN 01/03, SIRS with question of possible viral syndrome. History/Risk Factors: Clinical Indicators: WBC: 11.2 Lactic acid: 2.3 Vitals signs on admission: temp 102.5, pulse 103, resp rate 18, BP 144/79 Treatment: Acyclovir Antibiotics: Vanco IV, Leavquin IV IV Bolus: I liter bolus of NS In your professional opinion, please clarify if these findings signify one of the following conditions Condition SIRS please clarify non-infectious source Sepsis (SIRS due to an underlyling infectious process) Other, please specify Unable to determine (Last Revision: January 2018) Sepsis MTDD
--- NOTE | 2020-01-17 08:58 | CDI ---
Documentation Clarification Form Date: 01/08/2020 05:01:00 PM From: AUDELIA Cast, RN, CCDS, CDIP, CCS Admit Date: 01/03/2020 12:08:00 PM Patient Name: Danya Matthew Visit Number: [id number] Discharge Date: 01/04/2020 04:47:00 PM ATTENTION: The Clinical Documentation Specialists (CDI) and [facility] Coding Staff appreciate your assistance in clarifying documentation. Please respond to the clarification below the line at the bottom and electronically sign. The CDI & [facility] Coding staff will review the response and follow-up if needed. Please note: Queries are made part of the Legal Health Record. If you have any questions, please contact the author of this message via ITS. Dr. Goyo Lieberman: [id number] pending is documented in the discharge summary on 01/03. Patient history/risk factors: 64yo with a history of asthma, scleroderma, positive for lupus anti-bodies. Clinical Indicators: Pt presented with fever, chills CXR: no acute cardiopulmonary process Labs: 01/02 WBC 11.2, lactic acid 2.3 Vital Signs: in ER temp 102.5, heart rate 113 Treatment: Acyclovir po, isolation precautions In order to capture the severity of condition, please clarify if the above treatment/clinical indicators signify: COVID-19 Suspected COVID-19 ruled out COVID-19 confirmed Other, please specify (Last Form Revision: December 2019) COVID-19 ruled out MTDD
== END 2020-01-04 16:47 | disposition home or self-care (01) ==
LOC: EC 10:10 → 4SSUR 12:08 → INTOOBSV 12:08 → UNDODISIN 01-04 16:47
PROVIDERS: ADMIT Hospitalist; ATTEND Hospitalist
DX: A41.89 Other specified sepsis (principal); E87.2 Acidosis; M34.9 Systemic sclerosis, unspecified; B00.1 Herpesviral vesicular dermatitis; C50.412 Malignant neoplasm of upper-outer quadrant of left female breast; Z03.818 Encounter for observation for suspected exposure to other biological agents ruled out; E89.0 Postprocedural hypothyroidism; J45.20 Mild intermittent asthma, uncomplicated; M19.90 Unspecified osteoarthritis, unspecified site; G89.29 Other chronic pain; E66.9 Obesity, unspecified; Z68.35 Body mass index [BMI] 35.0-35.9, adult; D72.819 Decreased white blood cell count, unspecified; D50.9 Iron deficiency anemia, unspecified; Z14.8 Genetic carrier of other disease; Z17.0 Estrogen receptor positive status [ER+]; Z79.82 Long term (current) use of aspirin; Z79.890 Hormone replacement therapy; Z79.899 Other long term (current) drug therapy; Z88.1 Allergy status to other antibiotic agents; Z88.5 Allergy status to narcotic agent; Z88.0 Allergy status to penicillin; Z92.3 Personal history of irradiation; Z90.710 Acquired absence of both cervix and uterus; Z90.49 Acquired absence of other specified parts of digestive tract; Z87.01 Personal history of pneumonia (recurrent); Z87.440 Personal history of urinary (tract) infections; Z82.49 Family history of ischemic heart disease and other diseases of the circulatory system; Z83.79 Family history of other diseases of the digestive system
CPT/HCPCS: 96366; 96361; 96365; 96367; 99284; 36415; 93005; 80053; 80048; 83605; 83735; 84484; 85025; 85027; 85610; 85730; 81001; 87040; 87502; 71046; G0378 ×2; J3370; J1956; 99285

== ENCOUNTER → 2020-09-09 | Outpatient (CLI) | payer BC ==
--- NOTE | 2020-09-09 16:16 | CT ---
EXAMINATION TYPE: CT iac wo con DATE OF EXAM: 09/09/2020 COMPARISON: None HISTORY: 65-year-old female hearing loss, ringing in ears, H93.[address] DLP: 150 mGycm Automated exposure control for dose reduction was used. TECHNIQUE: Contiguous high-resolution axial scanning of the temporal bones without IV contrast. Izabel nal reformatted images obtained. 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 The external auditory canals are clear. The middle ear cavities are well pneumatized. Some trapped fluid within the inferior left mastoid air cells. Right mastoid air cells well pneumatized. No destruction of the fine osseous septa of the mas toid air cells. There is no abnormality of middle ear ossicles. The round and oval windows are normal. Unable to exclude subtle dehiscence along the superior semicircular canal on coronal images 101 throu gh 103. Otherwise, there is no abnormality of bony labyrinths. The vestibular and cochlear aqueducts are well visualized. The facial nerve canal is normal bilaterally. The internal auditory canal and meati are symmetrical bilaterally. There is no evidence of fractures. Mild mucosal thickening along the floor of the left maxillary sinus. Reformatted images confirm above findings. IMPRESSION: 1. Some trapped fluid in the inferior left mastoid air cells. Correlate for any mastoid pain to exclu de mastoiditis. 2. Unable to exclude subtle dehiscence along the left superior semicircular canal on coronal images 1 103. Correlate with patient's symptoms. 3. Mild chronic left maxillary sinusitis. 4. A 9 mm area of extra-axial ossification within the anterior aspect of the left middle cranial ally a, likely incidental small meningioma. Consider follow-up MRI brain without and with contrast in 6 mo nths to reassess.
== END | disposition home or self-care (01) ==
LOC: RADCTMAIN 14:20
PROVIDERS: ATTEND Otolaryngology
DX: H74.8X2 Other specified disorders of left middle ear and mastoid (principal); H83.8X2 Other specified diseases of left inner ear; H80.92 Unspecified otosclerosis, left ear; J32.0 Chronic maxillary sinusitis
CPT/HCPCS: 70480

== ENCOUNTER → 2020-11-27 | Outpatient (CLI) | payer BC ==
--- NOTE | 2020-11-28 05:08 | MR ---
EXAMINATION TYPE: MR brain and iac wo/w con DATE OF EXAM: 11/27/2020 COMPARISON: None HISTORY: Asymmetrical sensorineral hearing loss. CONTRAST: Standard multiplanar, multisequence MRI departmental protocol utilizing 9 mL intravenous Gadavist shagufta olinium contrast. Multiplanar multiecho imaging of the brain was performed without and with IV contrast gadolinium 9 mL . FINDINGS: There is some cerebral cortical atrophy. There is no mass effect nor midline shift. There is no evide nce of intracranial hemorrhage. Diffusion images show no evidence of an acute infarct. There is no ev idence of any significant white matter disease on the FLAIR images. There are tiny white matter high signal foci that measure 1 to 2 mm in the white matter of both cerebral hemispheres total number is l ess than 10. The brainstem is intact. Sella turcica is normal. Corpus callosum is intact. There is no evidence of posterior fossa mass. Internal auditory canals appear normal. There is normal appearance of the acoustic nerve and vestibular nerve. There is no evidence of cerebellopontine angl e mass. The huy appears normal. The contrast images show no pathologic enhancement. There is normal enhancement of the venous sinuses . IMPRESSION: No evidence of posterior fossa abnormality. There is mild cerebral atrophy appropriate for age. No ev idence of an infarct.
== END | disposition home or self-care (01) ==
LOC: RADMRIMAIN 14:54
PROVIDERS: ATTEND Otolaryngology Otology & Neurotology
DX: G31.9 Degenerative disease of nervous system, unspecified (principal); H90.5 Unspecified sensorineural hearing loss
CPT/HCPCS: 70553; A9585

== ENCOUNTER → 2020-12-14 | Outpatient (CLI) | payer BC ==
--- NOTE | 2020-12-14 17:08 | BD ---
EXAMINATION TYPE: Axial Bone Density DATE OF EXAM: 12/14/2020 COMPARISON: 08/15/2018 CLINICAL HISTORY: 65-year-old female postmenopausal screening Height: 62 IN Weight: 201 LBS FRAX RISK QUESTIONS: Secondary Osteoporosis: 3. Menopause before 45: PARTIAL HYST AGE 35 RISK FACTORS HISTORY OF: Active: YES Postmenopausal woman: PARTIAL HYST AGE 35 Take estrogen and/or progesterone medications: NOT NOW How lon YEARS MEDICATIONS: Thyroid Medications: YES Which medication: TYROSINE How Lon+ YEARS Osteoporosis Medications: NOT NOW Which medication: Fosamax How Lon YEARS Additional Medications: CALCIUM, VIT D, TYROSIN(THYROID), ESTRA-C, BABY ASPIRIN, BIOTIN, EXEMESTANE Additional History: BREAST CANCER WITH RADIATION EXAM MEASUREMENTS: Bone mineral densitometry was performed using the Prosonix System. Bone mineral density as measured about the Lumbar spine is: ----- L1-L4(G/cm2): 1.086 T Score Values are as follows: ----- L2: -1.1 ----- L3: -1.0 ----- L4: -0.6 ----- L1-L4: -0.8 Bone mineral density has: Decreased -3.9% since study of: 08/15/2018 Bone mineral density about the R hip (g/cm2): 0.836 Bone mineral density about the L hip (g/cm2): 0.803 T Score values are as follows: -----R Neck: -1.5 -----L Neck: -1.7 -----R Total: -1.0 -----L Total: -1.3 Bone mineral density has: Decreased -3.5% since study of: 08/15/2018 IMPRESSION: Osteopenia (T Score between -2.5 and -1). There is slightly increased risk of fracture and the patient may be considered for treatment. Re-Screen 2-5 years. NOTE: T-SCORE=SD OF THE YOUNG ADULT MEAN.
== END | disposition home or self-care (01) ==
LOC: RADBDWWP 14:24
PROVIDERS: ATTEND Internal Medicine Hematology & Oncology
DX: C50.419 Malignant neoplasm of upper-outer quadrant of unspecified female breast (principal); M85.80 Other specified disorders of bone density and structure, unspecified site; Z79.890 Hormone replacement therapy; Z88.0 Allergy status to penicillin; Z88.5 Allergy status to narcotic agent; Z88.8 Allergy status to other drugs, medicaments and biological substances
CPT/HCPCS: 77080

== ENCOUNTER → 2021-08-18 | Outpatient (CLI) | payer MEDICARE | END | disposition home or self-care (01) | LOC: LABWHC1 11:59 | PROVIDERS: ATTEND Internal Medicine Endocrinology, Diabetes & Metabolism | DX: E03.8 Other specified hypothyroidism (principal) | CPT/HCPCS: 36415; 84443 ==

== ENCOUNTER → 2022-03-08 | Outpatient (CLI) | payer MEDICARE ==
--- NOTE | 2022-03-09 03:01 | MR ---
EXAMINATION TYPE: MR lumbar spine wo con DATE OF EXAM: 03/08/2022 COMPARISON: None HISTORY: LBP, LLE radiculopathy. Multiplanar multiecho imaging of the lumbar spine without contrast. The lumbar vertebrae have normal alignment. There is L4-5 and L5-S1 disc space narrowing. There are s mall posterior disc herniation at L4-5. No compression fracture. The lumbar neural foramina are fairl y well maintained. There is developmentally adequate spinal canal. No spinal stenosis. There is no eli mbar paraspinal mass. No compression fracture. There is also very small posterior disc herniation at L5-S1. IMPRESSION: Small posterior disc herniations at L4-5 and L5-S1. No spinal stenosis. No fracture. Degenerative dis c space narrowing at L4-5 and L5-S1.
== END | disposition home or self-care (01) ==
LOC: RADMRIMAIN 14:23
PROVIDERS: ATTEND Physician Assistant Medical
DX: M51.27 Other intervertebral disc displacement, lumbosacral region (principal)
CPT/HCPCS: 72148

== ENCOUNTER → 2022-03-15 | Outpatient (CLI) | payer BC ==
--- NOTE | 2022-03-15 16:29 | US ---
EXAMINATION TYPE: US venous doppler duplex LE LT DATE OF EXAM: 03/15/2022 3:54 PM COMPARISON: NONE CLINICAL HISTORY: M79.605 PAIN IN LEFT LEG. SIDE PERFORMED: Left TECHNIQUE: The lower extremity deep venous system is examined utilizing real time linear array sonog carmen with graded compression, doppler sonography and color-flow sonography. VESSELS IMAGED: Common Femoral Vein Superior aspect of the Greater Saphenous Vein * Femoral Vein Popliteal Vein Proximal Calf Veins (* superficial vessels) Left Leg: Negative for DVT IMPRESSION: No evidence of DVT of the left lower extremity down to the knee.
== END | disposition home or self-care (01) ==
LOC: RADUSWWP 15:32
PROVIDERS: ATTEND Family Medicine
DX: M79.605 Pain in left leg (principal)

== ENCOUNTER 2022-04-18 12:58 | Emergency (ER) | payer BC, MEDICARE ==
[2022-04-18 14:40] VITALS: BP 128/76; PULSE 86; RESP 26; TEMP 98.6
[2022-04-18] MEDS ORDERED: BENZONATATE 100 MG CAP PO STA (14:54)
[2022-04-18] MEDS ORDERED: LIDOCAINE VISCOUS 2% 15 ML CUP MUCOUS MEM ONE (14:54)
--- NOTE | 2022-04-18 16:18 | ED ---
URI HPI - General Chief Complaint: Upper Respiratory Infection Stated Complaint: Covid+,Wants antibodies Time Seen by Provider: 04/18/22 14:45 Source: patient Mode of arrival: ambulatory Limitations: no limitations - History of Present Illness Initial Comments: Patient is a 66-year-old female who presents to the emergency department with a chief complaint of upper respiratory symptoms. Patient states her symptoms started 3 days ago which included sore throat, fatigue, and dry cough. Patient states she tested positive for COVID-19 at home today. Denies fever, shortness of breath, chest pain, and other concerns. Patient seeking antibiotic treatment. - Related Data Home Medications Medication Instructions Recorded Confirmed Levothyroxine Sodium [Tirosint] 112 mcg PO DAILY 01/03/20 01/03/20 Previous Rx's Medication Instructions Recorded Acyclovir [Zovirax] 800 mg PO 5XD #35 tab 01/04/20 Benzonatate [Tessalon Perles] 100 mg PO TID PRN 5 Days #15 04/18/22 capsule Lidocaine Viscous 2% [Xylocaine 15 ml MUCOUS MEM QID PRN #300 ml 04/18/22 Viscous] Allergies Allergy/AdvReac Type Severity Reaction Status Date / Time cephalexin [From Keflex] Allergy Nausea & Verified 04/18/22 14:40 Vomiting codeine Allergy Nausea & Verified 04/18/22 14:40 Vomiting meperidine [From Demerol] Allergy Nausea & Verified 04/18/22 14:40 Vomiting Penicillins Allergy Rash/Hives Verified 04/18/22 14:40 tetracycline Allergy Nausea & Verified 04/18/22 14:40 Vomiting Review of Systems ROS Statement: Those systems with pertinent positive or pertinent negative responses have been documented in the HPI. ROS Other: All systems not noted in ROS Statement are negative. Past Medical History Past Medical History: Asthma, Blood Disorder, Cancer, Osteoarthritis (OA), Pneumonia, Thyroid Disorder Additional Past Medical History / Comment(s): L breast cancer with lumpectomy/radiation and hormone treatment which was stopped approximately 2 weeks ago d/t issues with achiness/hotness, chronic leukocytopenia, hemochromatosis carrier, has lupus antibody but has never been diagnosed with lupus, scleraderma/chronic generalized pain, bronchitis. History of Any Multi-Drug Resistant Organisms: None Reported Past Surgical History: Breast Surgery, Cholecystectomy, Hysterectomy Additional Past Surgical History / Comment(s): L breast lumpectomy 2019, thyroidectomy d/t strangling goiter, colonoscopy. Past Anesthesia/Blood Transfusion Reactions: Postoperative Nausea & Vomiting (PONV) Past Psychological History: No Psychological Hx Reported Past Alcohol Use History: None Reported Past Drug Use History: None Reported - Past Family History Father Additional Family Medical History / Comment(s): Father from a surgical "mistake" per pt. Mother Additional Family Medical History / Comment(s): Mother had a brain bleed. General Exam Limitations: no limitations General appearance: alert, in no apparent distress Head exam: Present: atraumatic, normocephalic, normal inspection Respiratory exam: Present: normal lung sounds bilaterally. Absent: respiratory distress, wheezes, rales, rhonchi, stridor Cardiovascular Exam: Present: regular rate, normal rhythm, normal heart sounds. Absent: systolic murmur, diastolic murmur, rubs, gallop, clicks GI/Abdominal exam: Present: soft, normal bowel sounds. Absent: distended, tenderness, guarding, rebound, rigid Neurological exam: Present: alert, oriented X3, CN II-XII intact Psychiatric exam: Present: normal affect, normal mood Skin exam: Present: warm, dry, intact, normal color. Absent: rash Course Vital Signs 04/18/22 14:36 Temperature 98.6 F Pulse Rate 86 Respiratory 26 H Rate Blood Pressure 128/76 O2 Sat by Pulse 96 Oximetry Medical Decision Making - Medical Decision Making This is a 66-year-old female who presents with upper respiratory symptoms. Thorough history and examination were performed. Patient is COVID-19 positive. She meets criteria for monoclonal antibodies. Patient given monoclonal antibody treatment, Tessalon Perles, and viscous lidocaine. She will be discharged with symptomatic treatment. Quarantine instructions provided. Patient to follow up with her primary care provider. Return parameters discussed. Patient verbalizes understanding and is agreeable to this plan. Dr. Burns is my attending. - Lab Data Lab Results 04/18/22 Range/Units 15:04 Coronavirus (PCR) Detected A (Not Detectd) Disposition Clinical Impression: COVID-19 Disposition: HOME SELF-CARE Condition: Good Instructions (If sedation given, give patient instructions): Coronavirus Disease 2019 (COVID-19) Additional Instructions: Take medication as directed. Quarantine at home for 5 days. Return to the emergency department if you experience new, concerning, or worsening symptoms. Prescriptions: Benzonatate [Tessalon Perles] 100 mg PO TID PRN 5 Days #15 capsule PRN Reason: Cough Lidocaine Viscous 2% [Xylocaine Viscous] 15 ml MUCOUS MEM QID PRN #300 ml PRN Reason: Pain Is patient prescribed a controlled substance at d/c from ED?: No Referrals: Francisco Sarmiento MD [Primary Care Provider] - 1-2 days Time of Disposition: 16:18
[2022-04-18] MEDS ORDERED: BEBTELOVIMAB (EUA) 175 MG/2 ML VIAL IV ONE (16:30)
== END 2022-04-18 17:40 | disposition home or self-care (01) ==
LOC: EC 12:58
DX: U07.1 COVID-19 (principal); J45.909 Unspecified asthma, uncomplicated; E07.9 Disorder of thyroid, unspecified; Z79.899 Other long term (current) drug therapy; Z88.5 Allergy status to narcotic agent; Z88.0 Allergy status to penicillin; Z88.1 Allergy status to other antibiotic agents
CPT/HCPCS: 87635; 99284; Q0222

== ENCOUNTER → 2022-08-30 | Outpatient (CLI) | payer BC | END | disposition home or self-care (01) | LOC: LABWHC1 09:31 | PROVIDERS: ATTEND Internal Medicine Endocrinology, Diabetes & Metabolism | DX: E03.8 Other specified hypothyroidism (principal) | CPT/HCPCS: 36415; 84443 ==

== ENCOUNTER 2022-09-07 06:31 | Day surgery (SDC) | payer BC ==
[2022-09-02 11:07] VITALS: BMI 36.6
--- NOTE | 2022-09-06 13:32 | P.HPOR ---
History of Present Illness H&P Date: 09/06/22 Chief Complaint: Right thumb CMC arthritis, Right carpal tunnel syndrome Subjective: This is a 67 year old female that presents today for initial evaluation regarding a several year history of progressively worsening right hand paresthesias in the thumb, index, middle and ring fingers and severe pain at the base of the thumb. She has tried splinting and NSAIDs with little relief. She had a steroid injection into the right carpal tunnel on 06/29/22 which gave her about 40 percent improvement. She denies any inciting event or neck pain. Physical Examination: RUE: AIN/PIN/Radial/Ulnar/Median motor intact. Radial/Ulnar/Median SILT. 2+/4 Radial/Ulnar pulses palpated. 5/5 APB, 5/5 FDI. Negative Finkelsteins, positive CMC grind, positive Durkan's compression. EMG/NCV Severe right carpal tunnel syndrome, Moderate left carpal tunnel syndrome Impression: 1.) Right carpal tunnel syndrome, severe 2.) Right thumb CMC arthritis Plan: Diagnosis and treatment options were discussed with the patient. The patient has failed conservative treatment and would like to pursue a right endoscopic vs open carpal tunnel release and right thumb CMC basal joint arthroplasty. Risks and benefits of surgery including bleeding, infection, damage to surrounding tissue, need for further surgery, possible need to convert to open procedure, residual numbness especially due to severe EMG findings of severe carpal tunnel syndrome on the right which may result in no change or persistent numbness and that the goal of CTS surgery would be to halt any further progression were discussed and the patient wished to go forward with surgery. I anticipate 2 weeks off work, this can be extended if needed at first post op appointment. Follow up: 10 days post op -Naseem Barakat DO Orthopedic Hand/Upper Extremity Surgeon Past Medical History Past Medical History: Asthma, Blood Disorder, Cancer, GERD/Reflux, Hyperlipidemia, Osteoarthritis (OA), Pneumonia, Thyroid Disorder Additional Past Medical History / Comment(s): L breast cancer with lumpectomy/radiation and hormone treatment untill 06/2022, chronic leukocytopenia, hemochromatosis carrier, has lupus antibody but has never been diagnosed with lupus, scleraderma/chronic generalized pain, COVID 03/2022 History of Any Multi-Drug Resistant Organisms: None Reported Past Surgical History: Breast Surgery, Cholecystectomy, Hysterectomy Additional Past Surgical History / Comment(s): L breast lumpectomy 2019, thyroidectomy d/t strangling goiter, colonoscopy. Past Anesthesia/Blood Transfusion Reactions: Motion Sickness, Postoperative Nausea & Vomiting (PONV) Smoking Status: Never smoker - Past Family History Father Additional Family Medical History / Comment(s): Father from a surgical "mistake" per pt. Mother Additional Family Medical History / Comment(s): Mother had a brain bleed. Medications and Allergies Home Medications Medication Instructions Recorded Confirmed Type Aspirin [Adult Low Dose Aspirin EC] 81 mg PO DAILY 09/02/22 09/02/22 History Justin/D3/Mag11/Zinc/Internal Control Consultant/Jhony/Bor 1 each PO DAILY 09/02/22 09/02/22 History [Caltrate 600+D Plus Tablet] Cholecalciferol [Vitamin D3 (25 50 mcg PO DAILY 09/02/22 09/02/22 History Mcg = 1000 Iu)] Emergen-C Gummie 1 tab PO DAILY 09/02/22 09/02/22 History Krill Oil 500 mg PO DAILY 09/02/22 09/02/22 History Levothyroxine Sodium [Tirosint] 112 mcg PO QAM 09/02/22 09/02/22 History Rosuvastatin Calcium 5 mg PO PC-SUPPER 09/02/22 09/02/22 History Vitamin C/Biotin [Hair, Skin and 2 tab PO DAILY 09/02/22 09/02/22 History Nails Chew] Allergies Allergy/AdvReac Type Severity Reaction Status Date / Time albuterol [From Ventolin HFA] Allergy Rapid Verified 09/02/22 10:55 Heart Rate cephalexin [From Keflex] Allergy Nausea & Verified 04/18/22 14:40 Vomiting cetirizine [From Zyrtec] Allergy Rapid Verified 09/02/22 10:55 Heart Rate codeine Allergy Nausea & Verified 04/18/22 14:40 Vomiting diphenhydramine Allergy Rapid Verified 09/02/22 10:55 [From Benadryl] Heart Rate/sob fexofenadine [From Alexa] Allergy Rapid Verified 09/02/22 10:55 Heart Rate/sob meperidine [From Demerol] Allergy Nausea & Verified 04/18/22 14:40 Vomiting Penicillins Allergy Rash/Hives Verified 09/02/22 10:53 tetracycline Allergy Nausea & Verified 04/18/22 14:40 Vomiting Physical Examination Osteopathic Statement: *. No significant issues noted on an osteopathic structural exam other than those noted in the History and Physical/Consult.
[2022-09-07] MEDS ORDERED: ONDANSETRON 4 MG/2 ML VIAL IVP ONE ×2 (06:51→10:45)
[2022-09-07] MEDS ORDERED: LIDOCAINE 1% (10MG/ML) FOR IV START INTRADERMA PRN (06:51)
[2022-09-07] MEDS ORDERED: LACTATED RINGERS 1,000 ML IV SCH (06:51)
[2022-09-07] MEDS ORDERED: fentaNYL (PF) 50 MCG/ML 2 ML AMP IV PRN (07:00)
[2022-09-07] MEDS ORDERED: fentaNYL (PF) 50 MCG/1 ML VIAL IVP ONE (07:43)
[2022-09-07] MEDS ORDERED: MIDAZOLAM 2 MG/2 ML VIAL IVP ONE (07:43)
[2022-09-07] MEDS ORDERED: DEXAMETHASONE SOD PHOSPHATE 4 MG/ML 1 ML VIAL IVP ONE (07:55)
[2022-09-07] MEDS ORDERED: SCOPOLAMINE 1 MG/72 HR PATCH TRANSDERM ONE (07:58)
[2022-09-07] MEDS ORDERED: LIDOCAINE 2% INJ 20 MG/ML (2 ML VIAL) ONE (08:01)
[2022-09-07] MEDS ORDERED: PROPOFOL 10 MG/ML 20 ML VIAL IV ONE (08:01)
[2022-09-07] MEDS ORDERED: SODIUM CHLORIDE 0.9% (PF) 10 ML VIAL ONE (08:01)
[2022-09-07] MEDS ORDERED: ROPIVACAINE 5 MG/ML 30 ML VIAL ONE (08:01)
[2022-09-07] MEDS ORDERED: fentaNYL (PF) 50 MCG/ML 2 ML AMP ONE (08:01)
[2022-09-07 09:25] VITALS: TEMP 97
--- NOTE | 2022-09-07 09:34 | P.OP ---
Date of Procedure: 09/07/22 Preoperative Diagnosis: 1.) Right thumb CMC arthritis 2.) Right carpal tunnel syndrome Postoperative Diagnosis: 1.) Right thumb CMC arthritis 2.) Right carpal tunnel syndrome Procedure(s) Performed: 1.) Right thumb basilar joint arthroplasty 2.) Right endoscopic carpal tunnel release Implants: Arthrex 3.5 SwivelLock suture anchor x2 Anesthesia: regional Surgeon: Naseem Barakat Crnp #1: Julian Cunningham Estimated Blood Loss (ml): 0 Pathology: none sent Condition: stable Disposition: PACU Description of Procedure: This is a 67 year old female who presents today for a right thumb CMC basal joint arthroplasty and right endoscopic carpal tunnel release after having failed conservative treatment for severe thumb CMC arthritis. Risks and benefits of surgery were discussed with the patient including bleeding, damage to surrounding tissue, infection, need for further surgery as well as risks of anesthesia including pulmonary embolism and even and the patient wished to proceed with surgical intervention. The patients was seen in the pre-operative area by myself. Consent and H&P were completed and updated. The correct extremity was marked in the pre-operative area by myself and all other questions were answered. Patient received a upper extremity nerve block by the department of anesthesia. He then was brought to the operating room by the department of anesthesia. They remained on the portable stretcher and a rolling hand table was brought to the side of the operative extremity. The patient was then drifted off to sleep by the department of anesthesia. A nonsterile tourniquet was then applied to the operative extremity and the right upper extremity was then prepped and draped in normal sterile fashion. Pre-operative time out was performed indicating the correct patient, procedure and laterality. All in the room agreed. Pre-operative antibiotics were given prior to skin incision. The operative extremity was the exsanguinated with an esmarch bandage and the tourniquet was inflated to 250mmHg. 15 blade scalpel was utilized to make a transverse incision on the palmar skin just ulnar to the palmaris longus tendon at the level of the distal wrist crease. Ragnell retractor was then placed radially and blunt dissection was performed to reveal the distal forearm fascia. This was lifted with fine Mirza pick ups and Littler tenotomy scissors were then used to open the forearm fascia transversely and a double skin hook was then placed. Hamate finder was placed into the carpal tunnel and then sequential sized dilators were inserted followed by the synovial elevator to separate the flexor tenosynovium from the undersurface of the transverse carpal ligament and a washboard texture was felt. The MicroAire endoscopic carpal tunnel release system gun was the then inserted into the carpal tunnel hugging the deep portion of the transverse carpal ligament in line with the base of the ring finger. Transverse fibers of the ligament were directly visualized. Pressure was applied on the palm to reveal the distal extent of the transverse carpal ligament. The blade was then deployed and the distal half of the transverse carpal ligament was released. The scope was then brought distal again and remaining transverse fibers were incised with the blade. The proximal half of the transverse carpal ligament was then divided and again the scope was advanced distal and remaining transverse fibers were incised with the blade. The radial and ulnar leaflets were directly visualized and mobile consistent with complete release. Tenotomy scissors were then utilized to release the remaining distal forearm fascia under direct visualization taking care to preserve the palmar cutaneous branch of the median nerve. Attention was then drawn to the thumb CMC joint. Longitudinal incision was made over the left thumb CMC joint with a 15 blade scalpel. Blunt dissection was taken down to subcutaneous tissues with littler scissors taking care to preserve the branches of the superficial radial nerve. Dorsal radial artery was identified proximally in the incision and protected throughout the procedure. Scalpel was then made to incise the thumb CMC joint creating full thickness flaps off of the proximal metacarpal base and trapezium, this plane was further developed with a periosteal elevator. Elevator was then utilized to identify the thumb CMC joint and scaphotrapezial joint. McGlamory elevator was then used to excise the trapezium whole. Guidewire was then introduced down to the laser line at the base of the first metacarpal through the same incision and was over drilled. Another guidewire was then inserted at the radial base of the first metacarpal near the Insertion of APL and was then over drilled with normal drill guide. A 3.5mm Arthrex SwiveLock anchor was then inserted into the base of the first metacarpal. While holding the thumb in slight traction and full adduction, another 3.5mm Arthrex SwiveLock anchor was inserted into the base of the second metacarpal and the fibertape was centered across the first metacarpal base to create a sling around the base suspending the thumb metacarpal, good annika purchase was appreciated. The thumb was successfully suspended and full ROM was achieved passively. Suture ends were cut and skin was closed with several interrupted 4-0 Monocryl sutures followed by a running 4-0 Monocryl stitch. Sterile dressing consisting of mastisol and st juanito strips followed by 4x4s cast padding, and a thumb spica plaster splint was applied. Tourniquet was let down and the hand had brisk cap refill and normal perfusion immediately. The patient was then woken by the department of anesthesia and transferred to PACU in stable condition. Julian GONSALVES was present for the case and assisted in major portions of procedure and protection of vital neurovascular structures. Naseem Barakat D.O. Orthopedic Hand/Upper Extremity Surgeon
[2022-09-07 09:35] VITALS: RESP 16
[2022-09-07] MEDS ORDERED: LACTATED RINGERS 1,000 ML IV ONE (10:00)
--- NOTE | 2022-09-07 10:49 | P.ANPRN ---
Procedure Note - Anesthesia - Nerve Block Performed Right Axillary Single Time Out Performed: Yes ([id number]) Date of Procedure: 09/07/22 Procedure Start Time: 07:43 Procedure Stop Time: 07:51 Location of Patient: PreOp Indication: Acute Post-Operative Pain, Requested by Surgeon Specifically requested for management of pain by DrDiane: Naseem Barakat Sedation Type: Sedate with meaningful contact maintained Preparation: Sterile Prep Position: Supine (arm over head) Catheter: None Needle Types: Pajunk Needle Gauge: 21 Ultrasound used to visualize needle placement: Yes Ultrasound used to observe medication spread: Yes Injectate: 0.5% Ropivacaine (see comment for volume) (30cc + 10cc nacl pf. 10cc aliquots at mskcut, radial, ulnar and median) Blood Aspirated: No Pain Paresthesia on Injection Noted: No Resistance on Injection: Normal Image Stored and Saved: Yes Events: Uneventful and Well Tolerated
[2022-09-07 12:06] VITALS: BP 119/60; PULSE 67
== END 2022-09-07 12:32 | disposition home or self-care (01) ==
LOC: OR 06:31
PROVIDERS: ATTEND Orthopaedic Surgery Hand Surgery
DX: M18.11 Unilateral primary osteoarthritis of first carpometacarpal joint, right hand (principal); G56.01 Carpal tunnel syndrome, right upper limb; G89.18 Other acute postprocedural pain; J45.909 Unspecified asthma, uncomplicated; E78.5 Hyperlipidemia, unspecified; E07.9 Disorder of thyroid, unspecified; K21.9 Gastro-esophageal reflux disease without esophagitis; M32.9 Systemic lupus erythematosus, unspecified; Z85.3 Personal history of malignant neoplasm of breast; Z86.16 Personal history of COVID-19; Z90.49 Acquired absence of other specified parts of digestive tract; Z90.89 Acquired absence of other organs; Z90.12 Acquired absence of left breast and nipple; Z87.01 Personal history of pneumonia (recurrent); Z86.2 Personal history of diseases of the blood and blood-forming organs and certain disorders involving the immune mechanism; Z98.890 Other specified postprocedural states; Z79.82 Long term (current) use of aspirin; Z79.890 Hormone replacement therapy; Z88.0 Allergy status to penicillin; Z88.1 Allergy status to other antibiotic agents; Z88.5 Allergy status to narcotic agent; Z88.6 Allergy status to analgesic agent; Z88.8 Allergy status to other drugs, medicaments and biological substances; Z79.02 Long term (current) use of antithrombotics/antiplatelets; Z79.899 Other long term (current) drug therapy
CPT/HCPCS: 64415; 76942; 25447; 29848; C1713; J2250; J1100; J0690; J2405; J3010 ×2; J2795; J2704; J1790; J2001

== ENCOUNTER → 2022-10-29 | Outpatient (CLI) | payer BC ==
--- NOTE | 2022-11-02 06:54 | BMR ---
EXAMINATION TYPE: MR breast BILAT wo/w con DATE OF EXAM: 10/29/2022 COMPARISON: Outside mammogram March 17, 2022 BI-RADS 2. HISTORY: Lumpectomy left lateral x 5 years, F/U for past hx of left sided breast cancer 2019. TECHNIQUE: A series of fat and water weighted images in the long and short axis views of both breasts are obtained in conjunction with dynamic contrast MRI with subtraction technique. The patient was i njected with 9 mL intravenous Gadavist gadolinium contrast. Three-dimensional and additional postpr ocessing imaging is created on independent workstation and reviewed during official interpretation of this study. FINDINGS: Heterogeneously dense fibroglandular tissue bilaterally is redemonstrated. T2 and STIR weig hted images show no focal fluid collections or cystic lesions. No concerning axillary adenopathy is p resent. Dynamic postcontrast imaging shows mild background enhancement. Delayed dynamic imaging shows no suspicious internal mammary adenopathy. With regards to the right breast no abnormal skin thickening is seen. No pathologic enhancement or en hancing masses are noted. The chest wall is intact. With regards to the left breast there is distortion with blooming artifact corresponding to fat necro sis and hemosiderin deposition in the lateral posterior breast at roughly 3:00 position. There is asy mmetric mild left-sided skin thickening. Findings are consistent with posttreatment change for prior left breast malignancy. No pathologic enhancement or enhancing masses identified on current study. Ch est wall appears intact. IMPRESSION: Posttreatment changes to left breast noted. No MRI evidence for basal malignancy in eithe r breast. BI-RADS 2 benign findings right breast BI-RADS 2 benign findings left breast Recommendation: Patient due for bilateral breast mammogram March 2023.
== END | disposition home or self-care (01) ==
LOC: RADMRIMAIN 10:19
PROVIDERS: ATTEND Physician Assistant Medical
DX: C50.412 Malignant neoplasm of upper-outer quadrant of left female breast (principal)
CPT/HCPCS: 77049; A9585

== ENCOUNTER → 2023-02-28 | Outpatient (CLI) | payer BC | END | disposition home or self-care (01) | LOC: LABWHC1 10:43 | PROVIDERS: ATTEND Internal Medicine Endocrinology, Diabetes & Metabolism | DX: E03.8 Other specified hypothyroidism (principal) | CPT/HCPCS: 36415; 84443 ==

== ENCOUNTER → 2023-09-15 | Outpatient (CLI) | payer MEDICARE ==
--- NOTE | 2023-09-16 13:54 | US ---
EXAMINATION TYPE: US thyroid st tissue head/neck DATE OF EXAM: 09/15/2023 COMPARISON: NONE CLINICAL INDICATION: Female, 68 years old with history of E03.9 HYPOTHYROIDISM, UNSPECIFIED; thyroide ctomy age 17 GLAND SIZE: Right Lobe: Surgically absent Left Lobe: Surgically absent Isthmus Thickness: Surgically absent NODULES RIGHT: # of nodules measured on right: 0 LEFT: # of nodules measured on left: 0 ISTHMUS: # of nodules measured in the isthmus: 0 Bilateral neck scanned, no evidence of lymphadenopathy. IMPRESSION: Status post thyroidectomy. No suspicious nodules or residual tissue identified in the thyroidectomy b ed.
== END | disposition home or self-care (01) ==
LOC: RADUSWWP 17:07
PROVIDERS: ATTEND Family Medicine
DX: E89.0 Postprocedural hypothyroidism (principal)
CPT/HCPCS: 76536

== ENCOUNTER → 2024-11-27 | Outpatient (CLI) | payer MEDICARE ==
--- NOTE | 2024-11-30 10:38 | CT ---
EXAMINATION TYPE: CT chest wo con DATE OF EXAM: 11/27/2024 4:46 PM COMPARISON: None. CLINICAL INDICATION: Female, 69 years old with history of Z91.89 OTHER PERSONAL RISK FACTORS, NOT ELS EWHERE CL, abnormal labs TECHNIQUE: Axial images were obtained at 5 mm thick sections. Reconstructed images are reviewed on [employer] computer in the coronal plane. Contrast used: mL of , (none if empty) Oral contrast used: (none if empty) CT DLP: 663 mGycm, Automated exposure control for dose reduction was used. FINDINGS: Thyroid is not identified within the [id number]. No suspicious lung nodules or focal infiltrates are present. No enlarged mediastinal or hilar adenopathy is evident. The ascending aorta diameter at the level o f the main pulmonary artery is 3.6 cm. The main pulmonary artery diameter at the bifurcation is 2.[address] sections are obtained through the upper abdomen. Small lipoma appears to be present within the anterior left renal cortex. IMPRESSION: 1. No acute pulmonary process. [facility], , 11/30/2024 10:36 AM
== END | disposition home or self-care (01) ==
LOC: RADCTMAIN 15:10
PROVIDERS: ATTEND Family Medicine
DX: Z91.89 Other specified personal risk factors, not elsewhere classified (principal)
CPT/HCPCS: 71250

== ENCOUNTER → 2024-12-06 | Outpatient (CLI) | payer OTHER ==
--- NOTE | 2024-12-06 14:37 | CT ---
EXAMINATION TYPE: CT heart w calcium score DATE OF EXAM: 12/06/2024 COMPARISON: CT chest 11/27/2024 CLINICAL INDICATION: Female, 69 years old with history of Z91.89 OTH PERSONAL RISK FACTORS, NOT ELSEW HERE CL; PHH, At risk for acute ischemic cardiac event. TECHNIQUE: Prospective Gating was used. Slice thickness: 3mm. Density threshold (HU): 130, Pixel threshold: 3, Algorithm: discrete. CT DLP: 163.[address] CTDI: 8.87 mGy Automated exposure control for dose reduction was used. FINDINGS: CT CALCIUM SCORING Coronary calcium is a marker for plaque (fatty deposits) in a blood vessel or atherosclerosis (harden ing of the arteries). The presence and amount of calcium detected in a coronary artery by the CT sca n, indicates the presence and amount of atherosclerotic plaque. These calcium deposits appear years before the development of heart disease symptoms such as chest pain and shortness of breath. A calcium score is computed for each of the coronary arteries based upon the volume and density of th e calcium deposits. This can be referred to as your calcified plaque burden. It does not correspond directly to the percentage of narrowing in the artery but does correlate with the severity of the un derlying coronary atherosclerosis. RESULTS Region: LM Calcium Score ([place]): 76.36 Volume (mm3): 80.43 Mass (g): 26.81 Region: RCA Calcium Score ([place]): 0 Volume (mm3): 0 Mass (g): 0 Region: LAD Calcium Score ([place]): 18.49 Volume (mm3): 13.87 Mass (g): 4.62 Region: CX Calcium Score ([place]): 0 Volume (mm3): 0 Mass (g): 0 Region: PDA Calcium Score ([place]): 0 Volume (mm3): 0 Mass (g): 0 Total: Calcium Score ([place]): 94.85 Volume (mm3): 94.3 Mass (g): 31.43 TOTAL CALCIUM SCORE: 94.85 IMPRESSION: Calcium Score: 11-100 Implication: Definite, at least mild atherosclerotic plaque Risk of Coronary Artery Disease: Mild or minimal coronary narrowings likely. CALCIUM SCORE IMPLICATION RISK OF C ORONARY ARTERY DISEASE 0 No identifiable plaque Very low, generally less than 5% 1-10 Minimal identifiable plaque Very unlikely, less than 10% 11-100 Definite, at least mild atherosclerotic plaque Mild or m inimal coronary narrowings likely 101-400 Definite, at least moderate atherosclerotic plaque Mild coronary ar solange disease highly likely, significant narrowing possible 401 or Higher Extensive atherosclerotic plaque High lik elihood of at least one significant coronary narrowing [facility], , 12/06/2024 2:34 PM
== END | disposition home or self-care (01) ==
LOC: RADCTMAIN 13:59
PROVIDERS: ATTEND Family Medicine
DX: I25.10 Atherosclerotic heart disease of native coronary artery without angina pectoris (principal); Z91.89 Other specified personal risk factors, not elsewhere classified
CPT/HCPCS: 75571